=== PATIENT | male | born 1975 | race Native Hawaiian/Other Pacific Islander ===

== ENCOUNTER 2017-04-01 20:02 | Emergency (ER) | payer OTHER ==
[2017-04-01] MEDS ORDERED: Albuterol-Ipratrop 3 mg / 0.5 (3 ml) UD ONE (20:12)
[2017-04-01 20:35] VITALS: O2SAT 98
[2017-04-01] MEDS ORDERED: Albuterol-Ipratrop 3 mg / 0.5 (3 ml) UD IH STA (20:45)
[2017-04-01] MEDS ORDERED: Albuterol 0.083% Inhal Sol (2.5 mg/3 mL) UD IH STA ×2 (20:45→22:38)
--- NOTE | 2017-04-01 20:50 | C.PDOC ---
History Of Present Illness 41 y/o male presents to the ER with a cough and chest congestion that started 2 weeks ago. Patient was seen with another provider and was started on levaquin, ventolin inhaler, and a medrol pack. Patient's symptoms improved but he continued to experience chest congestion, tightness, and SOB. Patient reports that symptoms get worse in the cold morning air. Patient came to the ER today after experiencing tightness and SOB after a worker swept up dust in his house. Patient does not have a Hx of asthma. Patient denies any fever or chills. He is a smoker but states that he stopped smoking 3-4 weeks ago. Time Seen by Provider: 04/01/17 20:35 Chief Complaint (Nursing): Shortness Of Breath History Per: Patient History/Exam Limitations: no limitations Onset/Duration Of Symptoms: Days (14) Associated Symptoms: denies: Fever, Chills Recent travel outside of the [place]: No Past Medical History Reviewed: Historical Data, Nursing Documentation, Vital Signs Vital Signs: Last Vital Signs Temp 98.2 F 04/01/17 22:30 Pulse 105 H 04/01/17 22:30 Resp 20 04/01/17 22:30 BP 112/78 04/01/17 22:30 Pulse Ox 98 04/01/17 22:38 - Medical History PMH: No Chronic Diseases Surgical History: No Surg Hx Family History: States: Unknown Family Hx Other Family History: mother is asthmatic - Social History Hx Tobacco Use: Yes Hx Alcohol Use: No Hx Substance Use: No - Immunization History Hx Tetanus Toxoid Vaccination: No Hx Influenza Vaccination: No Hx Pneumococcal Vaccination: No Review Of Systems Except As Marked, All Systems Reviewed And Found Negative. Constitutional: Negative for: Fever, Chills Respiratory: Positive for: Cough (dry), Shortness of Breath, Other (congestion) Gastrointestinal: Negative for: Nausea Physical Exam - Physical Exam Appears: Non-toxic, No Acute Distress Skin: Warm, Dry Head: Atraumatic, Normacephalic Oral Mucosa: Moist Chest: Symmetrical Cardiovascular: Rhythm Regular Respiratory: No Normal Breath Sounds, Decreased Breath Sounds, No Wheezing, Other (diminished breath sounds) Gastrointestinal/Abdominal: Soft, No Tenderness Neurological/Psych: Oriented x3, Normal Speech, Normal Cognition ED Course And Treatment - Laboratory Results Result Diagrams: 04/01/17 20:57 04/01/17 20:57 Lab Interpretation: Abnormal (elevated WBC with normal diff.) O2 Sat by Pulse Oximetry: 98 (room air) Pulse Ox Interpretation: Normal - Radiology CXR: Interpreted by Me CXR Interpretation: Yes: No Acute Disease Progress Note: 10:30 Patient states he feels improved after several nebulizer treatments. Breath sounds improved with increased aeration but now can appreciate diffuse inspiratory and expiratory wheezing and bibasilar rhonchi. repeat albuterol ordered. Reevaluation Time: 23:44 Reassessment Condition: Improved Medical Decision Making Medical Decision Making: Plans- Blood tests, Chest X-ray Meds-Albuterol,Duoneb,SOLU-Medrol, Nebulizer treatment Disposition Counseled Patient/Family Regarding: Studies Performed, Diagnosis, Need For Followup, Rx Given - Disposition Referrals: Vaishali Romero MD [Staff Provider] - Disposition: HOME/ ROUTINE Disposition Time: 23:45 Condition: IMPROVED Additional Instructions: Take Robitussin or Mucinex for cough and congestion. Prescriptions: Azithromycin [Zithromax] 250 mg PO DAILY #1 pkg Methylprednisolone [Medrol Dose Pack (21 tabs)] 4 mg PO DAILY #1 packet Instructions: Bronchospasm (ED), Asthma (ED), Upper Respiratory Infection (ED) Forms: [facility] (Bulgarian) - Clinical Impression Clinical Impression: Respiratory tract infection, Bronchitis, Bronchospasm with bronchitis, acute
[2017-04-01] MEDS ORDERED: Albuterol 0.083% Inhal Sol (2.5 mg/3 mL) UD ONE ×4 (21:01→22:44)
[2017-04-01 21:06] LABS: BASO # 0.1 K/uL (0.0-0.2); BASO % 0.6 % (0.0-2.0); EOS # 0.8 K/uL (0.0-0.7); EOS % 5.4 % (0.0-4.0); HEMATOCRIT 47.2 % (35.0-51.0); LYMPH # 2.9 K/uL (1.0-4.3); LYMPH % 19.9 % (20.0-40.0); MEAN CELL VOLUME 89.8 fL (80.0-94.0); MEAN CORPUSCULAR HGB CONC 33.4 g/dL (33.0-37.0); MEAN PLATELET VOLUME 6.8 fL (7.2-11.7); MONO # 0.9 K/uL (0.0-0.8); MONO % 6.5 % (0.0-10.0); RED CELL DISTRIBUTION WIDTH 12.5 % (11.5-14.5); WHITE BLOOD COUNT 14.6 K/uL (4.8-10.8)
[2017-04-01 21:22] LABS: CHLORIDE 101 mmol/L (98-107)
[2017-04-01 21:23] LABS: SODIUM 137 mmol/L (132-148)
[2017-04-01 21:24] LABS: POTASSIUM 4.3 mmol/L (3.6-5.2)
[2017-04-01 21:26] LABS: ALB/GLOB RATIO 1.1 (1.0-2.1); ALKALINE PHOSPHATASE 75 U/L (38-126); ALT/SGPT 38 U/L (21-72); AST/SGOT 25 U/L (17-59); BILIRUBIN,TOTAL 0.7 mg/dL (0.2-1.3); BLOOD UREA NITROGEN 8 mg/dL (9-20); CARBON DIOXIDE 25 mmol/L (22-30); GFR AFRICAN-AMERICAN > 60; GLUCOSE,RANDOM 115 mg/dL (75-110); TOTAL PROTEIN 8.5 g/dL (6.3-8.3)
[2017-04-01 21:27] LABS: CALCIUM 9.8 mg/dl (8.6-10.4)
[2017-04-01 22:39] VITALS: BP 112/78; PULSE 105; RESP 20; TEMP 98.2
--- NOTE | 2017-04-02 09:29 | RAD ---
HISTORY: SOB COMPARISON: 10/06/14 TECHNIQUE: Chest PA and lateral FINDINGS: LUNGS: No active pulmonary disease. PLEURA: No significant pleural effusion identified. No pneumothorax apparent. CARDIOVASCULAR: Normal. OSSEOUS STRUCTURES: No significant abnormalities. VISUALIZED UPPER ABDOMEN: Normal. OTHER FINDINGS: None. IMPRESSION: No active disease.
== END 2017-04-01 23:55 | disposition home or self-care (01) ==
LOC: C.ER 20:02
DX: J98.8 Other specified respiratory disorders (principal); J20.9 Acute bronchitis, unspecified; Z87.891 Personal history of nicotine dependence
CPT/HCPCS: 71020; 80053; 85025; 94640; 96374; 99284; J2930

== ENCOUNTER 2017-06-11 15:49 | Emergency (ER) | payer OTHER ==
[2017-06-11 15:50] VITALS: BMI 32.3
[2017-06-11 15:54] VITALS: BP 136/81; PULSE 124; RESP 20; TEMP 98.6; O2SAT 97
[2017-06-11] MEDS ORDERED: Albuterol-Ipratrop 3 mg / 0.5 (3 ml) UD INH STA (16:15)
--- NOTE | 2017-06-11 17:02 | C.PDOC ---
History Of Present Illness 41 year old male presents to the ER with a complaint of generalized body aches, joint pain, productive cough w/ clear white sputum, nasal congestion, sore throat, and malaise for the past 3 days. Patient states he felt SOB last night and notes he feels chest tightness with his cough. Denies fever or chills. Time Seen by Provider: 06/11/17 15:57 Chief Complaint (Nursing): Flu-like Symptoms History Per: Patient History/Exam Limitations: no limitations Onset/Duration Of Symptoms: Days Current Symptoms Are (Timing): Still Present Location Of Pain: Throat, Diffuse Myalgias Sick Contacts (Context): None Associated Symptoms: Sore Throat, Cough, Sputum, Myalgias, Nasal Congestion, Other (Malaise). denies: Fever, Chills Ear Symptoms: Bilateral: None Recent travel outside of the [place]: No Past Medical History Reviewed: Historical Data, Nursing Documentation, Vital Signs Vital Signs: Last Vital Signs Temp 98.6 F 06/11/17 15:52 Pulse 124 H 06/11/17 15:52 Resp 20 06/11/17 15:52 BP 136/81 06/11/17 15:52 Pulse Ox 97 06/11/17 17:31 - Medical History PMH: No Chronic Diseases Family History: States: Unknown Family Hx - Social History Hx Tobacco Use: Yes Hx Alcohol Use: No Hx Substance Use: No - Immunization History Hx Tetanus Toxoid Vaccination: No Hx Influenza Vaccination: No Hx Pneumococcal Vaccination: No Review Of Systems Constitutional: Positive for: Malaise. Negative for: Fever, Chills ENT: Positive for: Nose Congestion, Throat Pain Respiratory: Positive for: Cough, Shortness of Breath, Sputum, Other (Chest tightness) Physical Exam - Physical Exam Appears: Non-toxic, No Acute Distress, Other (No respiratory distress) Skin: Normal Color, Warm, Dry Head: Atraumatic, Normacephalic Eye(s): bilateral: Normal Inspection Ear(s): Bilateral: Normal Nose: Normal Oral Mucosa: Moist Throat: Normal, No Erythema, No Exudate Neck: Normal, Supple Chest: Symmetrical, No Tenderness Cardiovascular: Rhythm Regular (Tachycardic) Respiratory: No Rales, No Rhonchi, Wheezing (Expiratory bilaterally) Gastrointestinal/Abdominal: Soft, No Tenderness Extremity: Normal ROM (x4), No Other (Joint swelling, erythema, or tenderness) Neurological/Psych: Oriented x3, Normal Speech ED Course And Treatment O2 Sat by Pulse Oximetry: 97 Medical Decision Making Medical Decision Making: Impression: cough, SOB Prior record reviewed: Patient seen and admitted on 04/20/17 Plan: * Tylenol * CXR * Duoneb. Re-eval, lung * Flu Progress: Flu test was negative. CXR shows no pleural effusion, pneumothorax or infiltrate. On re-eval the patient still complains of generalized body and joint pain. Toradol IM ordered. Case discussed with attending who recommends antibiotic. Zithromax was ordered. Re-eval, lungs now clear. has no fever. stable for discharge Disposition Counseled Patient/Family Regarding: Studies Performed, Diagnosis, Need For Followup, Rx Given - Disposition Referrals: Vaishali Romero MD [Staff Provider] - Disposition: HOME/ ROUTINE Disposition Time: 17:28 Condition: STABLE Additional Instructions: Take antibiotic and prednisone daily Take cough medicine and use inhaler as needed Please follow up with your primary doctor in 3-4 days for further evaluation Return to hospital for any worsening symptoms Prescriptions: Albuterol HFA [Ventolin HFA 90 mcg/actuation (8 g)] 1 puff IH Q4 #1 puff Azithromycin [Zithromax] 500 mg PO DAILY #2 tab Benzonatate [Tessalon Perles] 100 mg PO TID #30 sgl Prednisone 50 mg PO DAILY #5 tablet Instructions: Upper Respiratory Infection (ED) Forms: [facility] (Albanian) - POA Present On Arrival: None - Clinical Impression Clinical Impression: Upper respiratory infection, Wheezing - PA / ASSISTANT PROFESSOR OF BIOCHEMISTRY / Resident Statement MD/DO has reviewed & agrees with the documentation as recorded. - Scribe Statement The provider has reviewed the documentation as recorded by the Scribry Ahmadi All medical record entries made by the Danielibry were at my direction and personally dictated by me. I have reviewed the chart and agree that the record accurately reflects my personal performance of the history, physical exam, medical decision making, and the department course for this patient. I have also personally directed, reviewed, and agree with the discharge instructions and disposition.
--- NOTE | 2017-06-11 17:56 | RAD ---
HISTORY: sob COMPARISON: Comparison is made with the previous study dated 04/20/2017 TECHNIQUE: Chest PA and lateral FINDINGS: LUNGS: No significant interval change in the lungs noted since the previous exam. PLEURA: No significant pleural effusion identified. No pneumothorax apparent. CARDIOVASCULAR: Normal. OSSEOUS STRUCTURES: No significant abnormalities. VISUALIZED UPPER ABDOMEN: Normal. OTHER FINDINGS: None. IMPRESSION: No active disease.
== END 2017-06-11 17:50 | disposition home or self-care (01) ==
LOC: C.ER 15:49
DX: J06.9 Acute upper respiratory infection, unspecified (principal); R06.2 Wheezing
CPT/HCPCS: 71020; 87804; 96372; 99284; J1885

== ENCOUNTER 2017-07-30 16:48 | Emergency (ER) | payer OTHER ==
[2017-07-30 17:09] VITALS: BMI 31.7
[2017-07-30 17:12] VITALS: TEMP 97.4
[2017-07-30] MEDS ORDERED: Albuterol-Ipratrop 3 mg / 0.5 (3 ml) UD ONE ×2 (19:08→19:29)
[2017-07-30] MEDS ORDERED: Albuterol-Ipratrop 3 mg / 0.5 (3 ml) UD INH STA ×2 (19:15→19:32)
--- NOTE | 2017-07-30 19:51 | C.PDOC ---
History Of Present Illness 41 year old male presents to the ER with a complaint of cough, congestion, sore throat, and fever for the past week. Patient has not taken anything for his symptoms. Denies chest pain, nausea, vomiting, or SOB. Time Seen by Provider: 07/30/17 19:06 Chief Complaint (Nursing): Cough, Cold, Congestion History Per: Patient History/Exam Limitations: no limitations Onset/Duration Of Symptoms: Days Current Symptoms Are (Timing): Still Present Location Of Pain: None Sick Contacts (Context): None Associated Symptoms: Fever, Sore Throat, Cough, Nasal Congestion. denies: Nausea, Vomiting, Other (Chest pain, SOB) Ear Symptoms: Bilateral: None Recent travel outside of the [place]: No Past Medical History Reviewed: Historical Data, Nursing Documentation, Vital Signs Vital Signs: Last Vital Signs Temp 97.4 F L 07/30/17 17:09 Pulse 101 H 07/30/17 17:09 Resp 24 07/30/17 17:09 BP 99/68 L 07/30/17 17:09 Pulse Ox 95 07/30/17 19:51 - Medical History PMH: Bronchitis Family History: States: Unknown Family Hx - Social History Hx Tobacco Use: Yes Hx Alcohol Use: No Hx Substance Use: No - Immunization History Hx Tetanus Toxoid Vaccination: No Hx Influenza Vaccination: No Hx Pneumococcal Vaccination: Yes Review Of Systems Constitutional: Positive for: Fever ENT: Positive for: Nose Congestion, Throat Pain Cardiovascular: Negative for: Chest Pain Respiratory: Positive for: Cough. Negative for: Shortness of Breath Gastrointestinal: Negative for: Nausea, Vomiting Physical Exam - Physical Exam Appears: Non-toxic, No Acute Distress Skin: Normal Color, Warm, Dry Head: Atraumatic, Normacephalic Eye(s): bilateral: Normal Inspection Ear(s): Bilateral: Normal Nose: Normal Oral Mucosa: Moist Throat: Normal, No Erythema, No Exudate Neck: Normal, Supple Chest: Symmetrical, No Tenderness Cardiovascular: Rhythm Regular Respiratory: No Rales, No Rhonchi, No Wheezing, Other (egophony in upper airway) Gastrointestinal/Abdominal: Soft, No Tenderness Neurological/Psych: Oriented x3, Normal Speech ED Course And Treatment O2 Sat by Pulse Oximetry: 95 - Radiology CXR Interpretation: Yes: Infiltrates (+ retrocardiac) Progress Note: prednisone 40 po, Tamiflu PO, Duonebs x 2, Azithromycin 500 PO Reevaluation Time: 19:50 Reassessment Condition: Improved Medical Decision Making Medical Decision Making: influenza and retrocardiac pna empiric tx for CAP educated how to use MDI with Aerochamber Spacer Disposition Doctor Will See Patient In The: Office Counseled Patient/Family Regarding: Studies Performed, Diagnosis - Disposition Referrals: Vaishali Romero MD [Staff Provider] - Disposition: HOME/ ROUTINE Disposition Time: 19:51 Condition: GOOD Additional Instructions: continue Prednisone 40 mg daily for 4 more days- helps with airway inflammation Albuterol puffer: 2 puffs ( by 15 seconds) every 3 hours while awake Always use with the Aerochamber Spacer: makes it more effective Azithromycin- antibiotic for bacterial infection/bronchitis/pneumonia: 250 mg daily for 4 more days Tamiflu 75 mg twice a day for 5 days: anti-viral for treatment of suspected Influenza Continue Dayquil and Nyquil (or equivalent) liberally per package instructions. Prescriptions: Azithromycin 1 tab PO DAILY #4 tab Oseltamivir [Tamiflu] 75 mg PO BID #9 cap Prednisone [Deltasone] 40 mg PO DAILY #8 tablet Spacer, Inhalation [Aerochamber] 1 dev IH DAILY PRN #1 dev PRN Reason: asthma Instructions: Bacterial Upper Respiratory Infection, Adult, Influenza (ED) Forms: [employer] [facility] (Mongolian) - Clinical Impression Clinical Impression: Influenza-like illness, Respiratory tract infection - Scribe Statement The provider has reviewed the documentation as recorded by the Scribry Ahmadi All medical record entries made by the Scribe were at my direction and personally dictated by me. I have reviewed the chart and agree that the record accurately reflects my personal performance of the history, physical exam, medical decision making, and the department course for this patient. I have also personally directed, reviewed, and agree with the discharge instructions and disposition.
[2017-07-30 20:17] VITALS: BP 104/70; PULSE 90; RESP 20; O2SAT 96
--- NOTE | 2017-07-31 09:09 | RAD ---
HISTORY: cough/flu COMPARISON: 06/11/2017 TECHNIQUE: Chest PA and lateral FINDINGS: LUNGS: No active pulmonary disease. PLEURA: No significant pleural effusion identified. No pneumothorax apparent. CARDIOVASCULAR: Normal. OSSEOUS STRUCTURES: No significant abnormalities. VISUALIZED UPPER ABDOMEN: Normal. OTHER FINDINGS: None. IMPRESSION: No active disease.
== END 2017-07-30 20:16 | disposition home or self-care (01) ==
LOC: C.ER 16:48
DX: J11.1 Influenza due to unidentified influenza virus with other respiratory manifestations (principal)